=== PATIENT | female | born 1955 | race Caucasian/White ===

== ENCOUNTER 2021-07-20 09:40 | Emergency (ER) | payer MEDICARE ==
[~2021-07-20] VITALS: Ht 157.5 cm; Wt 53.5 kg
[2021-07-20] MEDS ORDERED: ASA81BEC PO (09:47)
[2021-07-20] MEDS ORDERED: LIPITOR 20 MG T20 M1 PO (09:47)
[2021-07-20] MEDS ORDERED: AZELASTINE205.5 MCG/ NARES (09:48)
[2021-07-20] MEDS ORDERED: COLACE 100 MG100 MG PO (09:49)
[2021-07-20] MEDS ORDERED: DRIZALMA SPRINK60 MG PO (09:49)
[2021-07-20] MEDS ORDERED: DRIZALMA SPRINK30 MG PO (09:49)
[2021-07-20] MEDS ORDERED: CARBIDOPA-LEVO1 EAC9 PO (09:49)
[2021-07-20] MEDS ORDERED: LEVO-T25 MCG PO (09:50)
[2021-07-20] MEDS ORDERED: GILTUSS EX200 MG/5 M PO (09:50)
[2021-07-20] MEDS ORDERED: HYDROCODON-ACE1 EA11 PO (09:50)
[2021-07-20] MEDS ORDERED: SERTRALINE HCL100 MG PO (09:51)
[2021-07-20] MEDS ORDERED: MELATONIN3 M2 PO (09:51)
[2021-07-20] MEDS ORDERED: REQUIP 1 MG TABL1 M1 PO (09:51)
[2021-07-20] MEDS ORDERED: CLARITIN10 M2 PO (09:51)
[2021-07-20] MEDS ORDERED: SPIRONOLACTONE50 MG PO (09:52)
[2021-07-20 11:54] VITALS: BP 120/43
== END 2021-07-20 11:56 | disposition home or self-care (01) ==
LOC: M.ERS 09:40
DX: R51.9 Headache, unspecified (principal); G20 Parkinson's disease; E78.5 Hyperlipidemia, unspecified; E03.9 Hypothyroidism, unspecified; F32.9 Major depressive disorder, single episode, unspecified; Z79.82 Long term (current) use of aspirin; Z79.899 Other long term (current) drug therapy; Z86.73 Personal history of transient ischemic attack (TIA), and cerebral infarction without residual deficits; Z88.2 Allergy status to sulfonamides; W19.XXXA Unspecified fall, initial encounter; Y93.89 Activity, other specified; Y92.89 Other specified places as the place of occurrence of the external cause; Y99.8 Other external cause status